=== PATIENT | female | born 1985 | race Hispanic/Latino ===

== ENCOUNTER 2022-08-09 23:31 | Emergency (ER) | payer SELFPAY ==
--- NOTE | 2022-08-10 01:00 | Emergency Department Report ---
ED General Adult HPI - General Chief complaint: Medical Clearance Stated complaint: DRUGE ABUSE Time Seen by Provider: 08/10/22 00:51 Source: patient, EMS ( EMS documentation not available at time of chart dictation ), RN notes reviewed Mode of arrival: Ambulatory Limitations: No Limitations - History of Present Illness Initial comments: The patient was evaluated in the emergency department for symptoms described in the history of present illness. He/she was evaluated in the context of the global COVID-19 pandemic, which necessitated consideration that the patient might be at risk for infection with the virus that causes COVID-19. Institutional protocols and algorithms that pertain to the evaluation of patients at risk for COVID-19 are in a state of rapid change based on information released by regulatory bodies including the CDC and federal and state organizations. These policies and algorithms were followed during the patient's care in the emergency department. Please note that these policies, procedures and recommendations changed on a rapid basis. The patient is a 37-year-old female who states that she is not . She recently came here from [place]. During the history and physical examination, female business development recruiter present. The patient presents to the department today with a complaint of request for detox. The patient uses cocaine on a frequent basis. She typically snorts it. She is anxious about her cocaine addiction She states that her body is physically painful, but however, she is not homicidal or suicidal. She is not experiencing hallucinations. She does not have access to guns or firearms. She does not inject IV drugs. She denies coingestions. She came here from [place] to get a change of scenery. She does not have friends or family close by that she is aware of. She is COVID-19 vaccinated, but has not received her booster. She denies COVID symptoms. She is seeking medical clearance for detox. Consistency: constant - Related Data Allergies Allergy/AdvReac Type Severity Reaction Status Date / Time No Known Allergies Allergy Verified 08/10/22 03:03 ED Review of Systems ROS: Stated complaint: DRUGE ABUSE Other details as noted in HPI Constitutional: denies: fever Respiratory: denies: cough Cardiovascular: denies: chest pain Gastrointestinal: denies: abdominal pain Musculoskeletal: arthralgia, myalgia Psychiatric: anxiety. denies: auditory hallucinations, visual hallucinations, homicidal thoughts, suicidal thoughts ED Physical Exam - General Limitations: No Limitations General appearance: alert, anxious - Head Head exam: Present: atraumatic, normocephalic - Eye Eye exam: Present: normal appearance, EOMI. Absent: nystagmus - ENT ENT exam: Present: normal exam, normal orophraynx, mucous membranes moist, normal external ear exam - Neck Neck exam: Present: normal inspection, full ROM. Absent: tenderness, meningismus - Respiratory Respiratory exam: Present: normal lung sounds bilaterally. Absent: respiratory distress, wheezes, rales, rhonchi, stridor, decreased breath sounds - Cardiovascular Cardiovascular Exam: Present: regular rate, normal rhythm, normal heart sounds. Absent: bradycardia, tachycardia, irregular rhythm, systolic murmur, diastolic murmur, rubs, gallop - GI/Abdominal GI/Abdominal exam: Present: soft. Absent: distended, tenderness, guarding, rebound, rigid, pulsatile mass - Extremities Exam Extremities exam: Present: normal inspection, full ROM, other (2+ pulses noted in the bilateral upper and lower extremities. There is no palpable cord. negative Homans sign. Muscular compartments are soft. The pelvis is stable.). Absent: pedal edema, calf tenderness - Back Exam Back exam: Present: normal inspection. Absent: tenderness, CVA tenderness (R), CVA tenderness (L), paraspinal tenderness, vertebral tenderness - Neurological Exam Neurological exam: Present: alert, oriented X3, normal gait, other (There is no facial droop. The tongue is midline. EOMI. 5 out of 5 strength in 4 extremities). Absent: motor sensory deficit - Psychiatric Psychiatric exam: Present: anxious. Absent: homicidal ideation, suicidal ideation - Skin Skin exam: Present: warm, dry, intact, normal color. Absent: rash ED Course Vital Signs 08/09/22 08/10/22 23:34 01:34 Temperature 97.3 F L Pulse Rate 98 H Respiratory 16 Rate Blood Pressure 170/100 [Right] O2 Sat by Pulse 97 Oximetry O2 Sat by Pulse 100 Oximetry [ Digit-Finger] - Reevaluation(s) Reevaluation #1: 08/10/22 01:32 Differential diagnosis, including but not limited to: Crack cocaine ingestion, polysubstance abuse, medical clearance for detox, medical clearance for psychiatric evaluation Assessment and plan: 37-year-old female who was initially afebrile, with reassuring vital signs, clinically sober, with a GCS of 15, who is anxious, but not homicidal, not suicidal, and exhibits decision-making capacity, who presents today with request for medical clearance for detox The patient is redirectable, and initially able to be de-escalated. It is my initial opinion that the patient does not require screening laboratory studies. Patient is advised that it appears that she does not appear to have an emergent medical condition present. I also counseled the patient that she may benefit from consideration to return to home to [place], where she might experience a more supportive social environment, and that she might have friends or family close by and available for assistance. Shortly thereafter, the patient called 911, and reported to police department that she was suicidal. A knife was found in her bag. Given that patient has a weapon, has threatened self-harm, she is placed on a 1013. At this point in time, given the aforementioned, it is my opinion that the patient meets criteria for 1013 hold. Psychiatric consultation is requested. Appropriate laboratory studies as typically requested by the psychiatry team are requested. 08/10/22 04:31 Macrobid ordered for pyuria with bacteriuria. Laboratory studies otherwise unremarkable. At this point in time, patient does not appear to have an immediate medical contraindication to psychiatric admission, evaluation, consultation and placement. Emergency room will follow along as the patient provides COVID swab - Pulse Oximetry Interpretation Digit-Finger Initial Pulse Oximetry Readin O2 Sat by Pulse Oximetry: 100 Actions Taken: none ED Medical Decision Making - Lab Data Result diagrams: 08/10/22 01:38 08/10/22 01:38 Vital Signs 08/09/22 23:34 Temperature 97.3 F L Pulse Rate 98 H Respiratory 16 Rate Blood Pressure 170/100 [Right] O2 Sat by Pulse 97 Oximetry Lab Results 08/10/22 08/10/22 08/10/22 Range/Units 01:38 01:38 01:38 WBC 10.4 (4.5-11.0) K/mm3 RBC 4.96 (3.65-5.03) M/mm3 Hgb 12.9 (10.1-14.3) gm/dl Hct 39.5 (30.3-42.9) % MCV 80 (79-97) fl MCH 26 L (28-32) pg MCHC 33 (30-34) % RDW 16.9 H (13.2-15.2) % Plt Count 431 (140-440) K/mm3 Sodium 137 (137-145) mmol/L Potassium 3.8 (3.6-5.0) mmol/L Chloride 100.4 (98-107) mmol/L Carbon Dioxide 27 (22-30) mmol/L Anion Gap 13 mmol/L BUN 6 L (7-17) mg/dL Creatinine 1.0 (0.6-1.2) mg/dL Estimated GFR > 60 ml/min BUN/Creatinine Ratio 6 % Glucose 96 (65-100) mg/dL Calcium 9.4 (8.4-10.2) mg/dL Total Creatine Kinase 84 (30-135) units/L HCG, Quant (0-4) mIU/mL Urine Color (Yellow) Urine Turbidity (Clear) Specific [place] (Man) (1.003-1.030) Ur Protein (Man) (Negative) mg/dL Ur Ketones (Man) (Negative) Ur Nitrite (Man) (Negative) Urine Bilirubin (Man) (Negative) Leukocyte Esterase (Man) (Negative) Urine WBC (Auto) (0.0-6.0) /HPF Urine RBC (Auto) (0.0-6.0) /HPF U Epithel Cells (Auto) (0-13.0) /HPF Urine Bacteria (Auto) (Negative) /HPF Urine RBC (Manual) (Negative) Urine Mucus /HPF Urine Yeast (Budding) /HPF Salicylates < 0.3 L (2.8-20.0) mg/dL Urine Opiates Screen Urine Methadone Screen Acetaminophen (10.0-30.0) ug/mL Ur Barbiturates Screen Ur Phencyclidine Scrn Ur Amphetamines Screen U Benzodiazepines Scrn Urine Cocaine Screen U Marijuana (THC) Screen Drugs of Abuse Note Plasma/Serum Alcohol (0-0.07) % 08/10/22 08/10/22 08/10/22 Range/Units 01:38 01:38 01:38 WBC (4.5-11.0) K/mm3 RBC (3.65-5.03) M/mm3 Hgb (10.1-14.3) gm/dl Hct (30.3-42.9) % MCV (79-97) fl MCH (28-32) pg MCHC (30-34) % RDW (13.2-15.2) % Plt Count (140-440) K/mm3 Sodium (137-145) mmol/L Potassium (3.6-5.0) mmol/L Chloride (98-107) mmol/L Carbon Dioxide (22-30) mmol/L Anion Gap mmol/L BUN (7-17) mg/dL Creatinine (0.6-1.2) mg/dL Estimated GFR ml/min BUN/Creatinine Ratio % Glucose (65-100) mg/dL Calcium (8.4-10.2) mg/dL Total Creatine Kinase (30-135) units/L HCG, Quant < 2.0 (0-4) mIU/mL Urine Color (Yellow) Urine Turbidity (Clear) Specific [place] (Man) (1.003-1.030) Ur Protein (Man) (Negative) mg/dL Ur Ketones (Man) (Negative) Ur Nitrite (Man) (Negative) Urine Bilirubin (Man) (Negative) Leukocyte Esterase (Man) (Negative) Urine WBC (Auto) (0.0-6.0) /HPF Urine RBC (Auto) (0.0-6.0) /HPF U Epithel Cells (Auto) (0-13.0) /HPF Urine Bacteria (Auto) (Negative) /HPF Urine RBC (Manual) (Negative) Urine Mucus /HPF Urine Yeast (Budding) /HPF Salicylates (2.8-20.0) mg/dL Urine Opiates Screen Urine Methadone Screen Acetaminophen 5.0 L (10.0-30.0) ug/mL Ur Barbiturates Screen Ur Phencyclidine Scrn Ur Amphetamines Screen U Benzodiazepines Scrn Urine Cocaine Screen U Marijuana (THC) Screen Drugs of Abuse Note Plasma/Serum Alcohol < 0.01 (0-0.07) % 08/10/22 08/10/22 Range/Units Unknown Unknown WBC (4.5-11.0) K/mm3 RBC (3.65-5.03) M/mm3 Hgb (10.1-14.3) gm/dl Hct (30.3-42.9) % MCV (79-97) fl MCH (28-32) pg MCHC (30-34) % RDW (13.2-15.2) % Plt Count (140-440) K/mm3 Sodium (137-145) mmol/L Potassium (3.6-5.0) mmol/L Chloride (98-107) mmol/L Carbon Dioxide (22-30) mmol/L Anion Gap mmol/L BUN (7-17) mg/dL Creatinine (0.6-1.2) mg/dL Estimated GFR ml/min BUN/Creatinine Ratio % Glucose (65-100) mg/dL Calcium (8.4-10.2) mg/dL Total Creatine Kinase (30-135) units/L HCG, Quant (0-4) mIU/mL Urine Color Straw (Yellow) Urine Turbidity Clear (Clear) Specific [place] (Man) 1.010 (1.003-1.030) Ur Protein (Man) <30 mg dl (Negative) mg/dL Ur Ketones (Man) 5mg/dl (Negative) Ur Nitrite (Man) Positive (Negative) Urine Bilirubin (Man) Negative (Negative) Leukocyte Esterase (Man) Small (Negative) Urine WBC (Auto) 34.0 H (0.0-6.0) /HPF Urine RBC (Auto) 4.0 (0.0-6.0) /HPF U Epithel Cells (Auto) 2.0 (0-13.0) /HPF Urine Bacteria (Auto) 1+ (Negative) /HPF Urine RBC (Manual) 3+ (Negative) Urine Mucus Few /HPF Urine Yeast (Budding) 1+ /HPF Salicylates (2.8-20.0) mg/dL Urine Opiates Screen Negative Urine Methadone Screen Negative Acetaminophen (10.0-30.0) ug/mL Ur Barbiturates Screen Negative Ur Phencyclidine Scrn Negative Ur Amphetamines Screen Positive U Benzodiazepines Scrn Negative Urine Cocaine Screen Positive U Marijuana (THC) Screen Negative Drugs of Abuse Note Disclamer Plasma/Serum Alcohol (0-0.07) % Critical care attestation.: If time is entered above; I have spent that time in minutes in the direct care of this critically ill patient, excluding procedure time. ED Disposition Clinical Impression: Cocaine abuse, Medical clearance for psychiatric admission Disposition: [address] [place] [address] Is pt being admited?: No Does the pt Need Aspirin: No Condition: Good
[2022-08-10] MEDS ORDERED: MIDAZOLAM 2 MG/2 ML INJ IM PRN (01:22)
[2022-08-10] MEDS ORDERED: HALOPERIDOL LACTATE 5 MG/1 ML INJ IM PRN (01:22)
[2022-08-10 02:11] LABS: Hematocrit 39.5 % (30.3-42.9); Hemoglobin 12.9 gm/dl (10.1-14.3); Mean Corpuscular HGB Conc 33 % (30-34); Mean Corpuscular Volume 80 fl (79-97); Platelet Count 431 K/mm3 (140-440); Red Blood Count 4.96 M/mm3 (3.65-5.03); Red Cell Distribution Width 16.9 % (13.2-15.2)
[2022-08-10 02:15] LABS: BUN/Creatinine Ratio 6; Blood Urea Nitrogen 6 mg/dL (7-17); Calcium 9.4 mg/dL (8.4-10.2); Hemolysis Index 10
[2022-08-10 02:57] LABS: Color,Urine Straw (Yellow)
[2022-08-10 02:59] LABS: Bacteria,Urine 1+ /HPF (Negative); Mucus,Urine FEW /HPF
[2022-08-10 03:23] LABS: Benzodiazepines Screen,Urine Negative; Cannabinoid Screen,Urine Negative; Methadone Screen,Urine Negative; Opiate Screen,Urine Negative
[2022-08-10 03:43] LABS: Amphetamine Screen,Urine Positive; Cocaine Screen,Urine Positive
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
[2022-08-10] MEDS: NITROFURANTOIN MONOHYD/M-CRYST 100 MG CAP PO SCH ×2 (14:56→22:29)
[2022-08-10] MEDS: QUEtiapine 25 MG TAB PO SCH ×2 (14:56→22:28)
[2022-08-10] MEDS: SERTRALINE 25 MG TAB PO SCH (14:56)
--- NOTE | 2022-08-11 12:37 | Progress Note ---
Subjective - Reason for Consult Consult date: 08/11/22 Reason for consult: SI - Chief Complaint Chief complaint: The patient was seen today. She looks withdrawn and depressed. Her affect is flat. She makes poor eye contact. She says she is not feeling good. The patient says she is depressed and doesn't care to live anymore. She says "I just don't feel I deserve to be here. I want to be with my dad." She denies having a plan. She says "I need help. If I don't get it, I'm going to do something to myself. I can't live like this." She endorses voices telling her she's not worth anything. REVIEW OF SYSTEMS Constitutional: Negative for weight loss ENT: Negative for stridor Respiratory: Negative for cough or hemoptysis All other systems reviewed and are negative MENTAL STATUS EXAMINATION General Appearance and Behavior: Age appropriate, wearing appropriate clothes, cooperative, polite with questioning, good eye contact Cooperation: cooperative Psychomotor Behavior: Psychomotor normal Mood: Depressed Affect and affective range: congruent with stated affect, flat Thought Process: Goal directed Thought Content: Hallucinations, hopelessness, helplessness, SI Speech: Normal volume, Regular rate and rhythm Suicidal Ideation: Yes Homicidal Ideation: Denies Hallucination: Auditory Delusions: None elicited Impulse Control: Limited Insight and Judgment: Limited Memory: Intact Attention:attentive Orientation: Alert and oriented Diagnoses: Major Depressive Disorder Treatment Plan 1013 Increase Zoloft 50mg po daily Increase Seroquel 100mg po BID Medical: per primary Disposition: Recommend acute psychiatric inpatient treatment Will follow. Thanks Case staffed with Dr. Flores Mental Status Exam - Vital signs Last Vital Signs Temp 98.0 F 08/11/22 06:05 Pulse 72 08/11/22 06:05 Resp 16 08/11/22 06:05 BP 106/59 08/11/22 06:05 Pulse Ox 100 08/11/22 06:05
[2022-08-11] MEDS: NITROFURANTOIN MONOHYD/M-CRYST 100 MG CAP PO SCH ×2 (14:31→22:10)
[2022-08-11] MEDS: SERTRALINE 25 MG TAB PO SCH (14:42)
[2022-08-11] MEDS: QUEtiapine 25 MG TAB PO SCH (14:48)
[2022-08-11] MEDS: QUEtiapine 100 MG TAB PO SCH (22:10)
--- NOTE | 2022-08-12 08:08 | Progress Note ---
Subjective - Reason for Consult Consult date: 08/12/22 Reason for consult: depression, SI - Chief Complaint Chief complaint: The patient was seen today. She is irritable. She says she doesn't feel well at all. The patient still endorses SI. She says "I'm just ready to go. Just ready to leave this world." When asking about a plan, she says "just whatever I can do to get it over with." She denies hallucinations. REVIEW OF SYSTEMS Constitutional: Negative for weight loss ENT: Negative for stridor Respiratory: Negative for cough or hemoptysis All other systems reviewed and are negative MENTAL STATUS EXAMINATION General Appearance and Behavior: Age appropriate, wearing appropriate clothes, cooperative, polite with questioning, good eye contact Cooperation: cooperative Psychomotor Behavior: Psychomotor normal Mood: Depressed Affect and affective range: congruent with stated affect, flat Thought Process: Goal directed Thought Content: Hallucinations, hopelessness, helplessness, SI Speech: Normal volume, Regular rate and rhythm Suicidal Ideation: Yes Homicidal Ideation: Denies Hallucination: Auditory Delusions: None elicited Impulse Control: Limited Insight and Judgment: Limited Memory: Intact Attention:attentive Orientation: Alert and oriented Diagnoses: Major Depressive Disorder Treatment Plan 1013 Increase Zoloft 100mg po daily Seroquel 100mg po BID Medical: per primary Disposition: Recommend acute psychiatric inpatient treatment Will follow. Thanks Case staffed with Dr. Flores Mental Status Exam - Vital signs Last Vital Signs Temp 98.0 F 08/11/22 06:05 Pulse 87 08/11/22 21:45 Resp 18 08/11/22 21:45 BP 115/78 08/11/22 21:45 Pulse Ox 100 08/11/22 21:45
[2022-08-12] MEDS ORDERED: SERTRALINE 100 MG TAB PO SCH (10:00)
[2022-08-12] MEDS ORDERED: SERTRALINE 50 MG TAB PO SCH (10:00)
[2022-08-12] MEDS: QUEtiapine 100 MG TAB PO SCH (10:05)
[2022-08-12] MEDS: NITROFURANTOIN MONOHYD/M-CRYST 100 MG CAP PO SCH (10:05)
[2022-08-12 10:45] VITALS: BP 120/62
--- NOTE | 2022-08-12 12:38 | Event Note ---
Date: 08/12/22 Pt seen this morning and continue to reports suicide but denies any homicidal ideation. Pt also seen by the psychiaty and continue to recommend inpatient psych management and patient was accepted by Dr Parham at [facility] for further evaluation and treatment. No issue reported overnight.
== END 2022-08-12 15:30 ==
LOC: ED 23:31
DX: Z04.6 Encounter for general psychiatric examination, requested by authority (principal); Z20.822 Contact with and (suspected) exposure to COVID-19; F14.10 Cocaine abuse, uncomplicated; Z79.899 Other long term (current) drug therapy
CPT/HCPCS: 36415; 80048; 80307; 81001; 82550; 84702; 85027; 87076; 87086; 87186; 99285; U0003; 80320; G0480